=== PATIENT | male | born 1965 | race Caucasian/White ===

== ENCOUNTER 2023-12-21 12:00 | Emergency (ER) | payer SELFPAY ==
[~2023-12-21] VITALS: Ht 167.6 cm; Wt 68.0 kg
[2023-12-21 12:02] VITALS: O2SAT 100
[2023-12-21 12:35] LABS: BASOPHILS % 0.4 % (0.0-2.0); EOSINOPHILS % 1.6 % (0.0-5.0); HEMATOCRIT. 39.5 % (42.0-52.0); HEMOGLOBIN. 13.4 g/dL (14.0-18.0); LYMPHOCYTES % 16.8 % (20.0-50.0); MEAN CORPUSCULAR HEMOGLOBIN 31.5 pg (28.0-32.0); MEAN CORPUSCULAR HGB CONC 33.8 g/dL (31.0-37.0); MEAN CORPUSCULAR VOLUME 93.1 fL (80.0-94.0); MEAN PLATELET VOLUME 6.6 fl (7.4-10.4); MONOCYTES % 7.5 % (2.0-8.0); NEUTROPHILS % 73.7 % (40.0-76.0); PLATELET 300 x1000/uL (130-400); RED BLOOD CELL COUNT 4.24 mill/uL (4.7-6.1); RED CELL DISTRIBUTION WIDTH 13.8 % (11.6-14.6); WHITE BLOOD COUNT 6.9 x1000/uL (4.5-11.0)
[2023-12-21 12:41] LABS: CHLORIDE 109 mEq/L (98-107); POTASSIUM 3.7 mEq/L (3.5-5.1); SODIUM 142 mEq/L (136-145)
[2023-12-21 12:42] LABS: CALCIUM 9.1 mg/dL (8.7-10.4); CARBON DIOXIDE 25 mEq/L (21-32)
[2023-12-21 12:47] LABS: CREATININE 0.9 mg/dL (0.6-1.3); GLUCOSE 95 mg/dL (70-105); UREA NITROGEN BLOOD 16 mg/dL (9-23)
[2023-12-21 12:49] LABS: ACETAMINOPHEN < 2 ug/mL (10-30)
[2023-12-21] MEDS: IBUPROFEN 600MG TABLET PO STA (12:54)
[2023-12-21] MEDS ORDERED: IBUP-2029 MT (12:57)
[2023-12-21 13:15] VITALS: BP 116/75; PULSE 72; RESP 16; TEMP 36.61404; O2SAT 98
[2023-12-21 13:56] LABS: ETHANOL BLOOD < 10 mg/dL (<10)
== END 2023-12-21 13:52 | disposition home or self-care (01) ==
LOC: ER 12:37
DX: R07.81 Pleurodynia (principal); F20.9 Schizophrenia, unspecified
CPT/HCPCS: 36415; 71045; 80048; 80307; 80320; 80329; 85025; 99284; G0480